=== PATIENT | female | born 1980 | race Caucasian/White ===

== ENCOUNTER 2024-05-26 12:07 | Emergency (ER) | payer MEDICAID, SELFPAY ==
--- NOTE | ~2024-05-26 | CT_ITS ---
CLINICAL HISTORY: rt facial swelling CT soft tissue neck with IV contrast. COMPARISON: None FINDINGS: Normal thyroid gland. Normal submandibular gland. Normal parotid glands. Orbital soft tissues are unremarkable. Parapharyngeal fat pads are preserved. No palatine tonsillar hypertrophy. Normal epiglottis. Visualized portions of the trachea and esophagus are unremarkable. Soft tissue edema overlying the right lower face. Thin fluid collection present along the lateral aspect of the mandible measuring 1.6 x 3.3 x 0.3 cm (series 3, image 174). This likely originates from the 2nd mandibular molar on the right where there is a large periapical radicular cyst. Multiple dental caries present. No supraclavicular lymphadenopathy. Multiple prominent submandibular and jugular chain lymph nodes on the right, likely reactive. Major vascular structures enhance normally. Visualized intracranial structures are unremarkable. Visualized portions of the lung apices are clear. IMPRESSION: 1. Thin organizing fluid collection along the right aspect of the mandible suspicious for developing abscess. There is overlying soft tissue swelling. Suspect odontoid origin from the 2nd right mandibular molar. 2. Multiple normal-sized and prominent jugular chain and submandibular lymph nodes on the right, likely reactive. This document has been electronically signed by: Asa Toledo MD on 05/26/2024 15:39:24
--- NOTE | 2024-05-26 12:37 | ED.GENADULT ---
HPI - General Adult General Chief complaint: Dental/Oral Stated complaint: Dental Pain Time Seen by Provider: 05/26/24 13:44 Related Data Previous Rx's ?Medication ?Instructions ?Recorded clindamycin HCl 300 mg capsule 300 mg PO Q6H 7 days #28 caps 05/26/24 (Cleocin HCl) oxycodone 5 mg tablet 5 mg PO Q6H PRN pain #15 tabs 05/26/24 doxycycline hyclate 100 mg tablet 100 mg PO BID 7 days #14 tabs 05/28/24 Allergies Allergy/AdvReac Type Severity Reaction Status Date / Time cephalexin [From Keflex] Allergy Unknown Verified 05/28/24 11:38 levofloxacin [From Levaquin] Allergy Joint Pain Verified 05/28/24 11:38 lorazepam [From Ativan] Allergy Hallucinati Verified 05/28/24 11:38 ons Penicillins [PCN] Allergy Anaphylaxis Verified 05/28/24 11:38 PENDING SALE TO [facility] Social History Social History Unable to assess alcohol history related to: Unknown Advance Directives: No Advance Directives Information Provided: Yes Physical Exam ED Vital Signs: BMI result Body Mass Index 32.8 Course Course Course Narrative: This is a rapid medical exam performed by Essence Iniguez NP: Additional HPI, ROS, PE not included below will be deferred to primary provider. Patient is a 44-year-old female presenting with complaint of right lower jaw pain and swelling. States has been back and forth to [facility] for the past several days for same complaint, has had CT there. Have chills, cold sweats. Vomiting last night, unable to tolerate PO abx. Plan: labs, will obtain records from [facility] Medications Administered Discontinued Medications Generic Name Dose Route Start Last Admin Trade Name Freq PRN Reason Stop Dose Admin Dexamethasone Sodium Phosphate 10 mg 05/26/24 13:59 05/26/24 14:08 Dexamethasone Sod Phosphate 10 Mg/Ml Vial IVPUSH 05/26/24 14:00 10 mg ONCE ONE Administration Diazepam 2.5 mg 05/26/24 14:00 05/26/24 14:08 Diazepam 10 Mg/2 Ml Cartridge IVPUSH 05/26/24 14:01 2.5 mg STAT STA Administration Diazepam 2.5 mg 05/26/24 14:47 05/26/24 15:01 Diazepam 10 Mg/2 Ml Cartridge IVPUSH 05/26/24 14:48 2.5 mg STAT STA Administration Sodium Chloride 1,000 mls @ 999 mls/hr 05/26/24 14:30 05/26/24 16:09 Ns IVCONT 05/26/24 15:30 Infused .Q1H1M NIMISHA Infusion Clindamycin Phosphate 900 mg in 50 mls @ 50 mls/hr 05/26/24 14:29 05/26/24 16:09 Cleocin IV 05/26/24 15:28 Infused ONCE ONE Infusion Iohexol 100 ml 05/26/24 15:06 05/26/24 15:06 Iohexol 350 Mg/Ml 100 Ml Infus..Btl IV 05/26/24 15:07 60 ml ONCE ONE Administration Morphine Sulfate 4 mg 05/26/24 13:59 05/26/24 14:08 Morphine Sulfate 4 Mg/Ml Cartridge IVPUSH 05/26/24 14:00 4 mg ONCE ONE Administration Protocol Morphine Sulfate 4 mg 05/26/24 14:48 05/26/24 15:00 Morphine Sulfate 4 Mg/Ml Cartridge IVPUSH 05/26/24 14:49 4 mg ONCE ONE Administration Protocol Ondansetron HCl 4 mg 05/26/24 13:59 05/26/24 14:08 Ondansetron Hcl 4 Mg/2 Ml Vial IVPUSH 05/26/24 14:00 4 mg ONCE ONE Administration Medical Decision Making Lab Data 05/26/24 13:06 05/26/24 13:06 Labs: Lab Results 05/26/24 Range/Units 13:06 WBC 9.2 (4.8-10.8) X10*3/uL RBC 4.98 (4.20-5.50) X10*6/uL Hgb 15.0 (12.0-16.0) g/dl Hct 45.0 (37.0-47.0) % MCV 90.4 (80.0-98.0) fL MCH 30.1 (27.0-33.0) pg MCHC 33.3 (31.0-35.0) g/dl RDW 12.9 (11.0-16.0) % Plt Count 558 H (160-400) X10*3/uL MPV 9.8 (9.4-12.3) fL Immature Gran % (Auto) 0.4 (0.0-0.4) % Neut % (Auto) 64.0 (45-73) % Lymph % (Auto) 29.0 (20-40) % Lamb % (Auto) 5.3 (2-11) % Eos % (Auto) 1.0 (0-4) % Baso % (Auto) 0.3 (0-2) % Lymph # (Auto) 2.7 (1.2-4.9) X10*3/uL Lamb # (Auto) 0.5 (0.1-1.2) X10*3/uL Eos # (Auto) 0.1 (0.0-0.4) X10*3/uL Baso # (Auto) 0.0 (0.0-0.2) X10*3/uL Abs Immat Gran (auto) 0.04 H (0.00-0.03) X10*3/uL Absolute Neuts (auto) 5.9 (2.0-8.3) x10*3/uL Absolute Nucleated RBC 0.000 (0.0-0.012) X10*3/uL Nucleated RBC % (auto) 0.0 (0.0-0.2) /100WBC ESR 14 (0-20) MM/HR Sodium 138 (135-145) mmol/L Potassium 4.0 (3.3-5.1) mmol/L Chloride 110 H (96-108) mmol/L Carbon Dioxide 19 L (22-29) mmol/L Anion Gap 13 (12-20) BUN 11 (9-16) mg/dL Creatinine 0.57 (0.5-1.4) mg/dL Estim Creat Clear Calc 131.9 Estimated GFR > 60 Random Glucose 100 (60-115) mg/dL Calcium 9.2 (8.4-10.2) mg/dL Total Bilirubin 0.2 (0.0-1.0) mg/dL AST 11 (5-31) U/L ALT 10 (0-31) U/L Alkaline Phosphatase 66 (39-117) U/L C-Reactive Protein 0.59 H (< or = 0.50) mg/dL Total Protein 7.3 (6.5-8.0) g/dL Albumin 3.9 (3.5-5.0) g/dL Beta HCG, Quant < 2 mIU/mL Discharge Plan Discharge Clinical Impression: Dental abscess Patient Disposition: Home, Self-Care Instructions: Dental Abscess (ED) Additional Instructions: Follow-up with a dentist tomorrow, we sent a prescription for clindamycin to your pharmacy (clindamycin is an appropriate antibiotic for the dental infection) also we sent pain medicine for you and anti-inflammatory medication. Return to emergency room if you have a fever, if you unable to tolerate fluids down any concern. Prescriptions: New oxycodone 5 mg tablet 5 mg PO Q6H PRN (Reason: pain) Qty: 15 0RF Rx Instructions: partial filing upon pt request; Partial Fill upon patient request. clindamycin HCl [Cleocin HCl] 300 mg capsule 300 mg PO Q6H 7 Days Qty: 28 0RF No Action doxycycline hyclate 100 mg tablet 100 mg PO BID 7 Days Qty: 14 0RF Interventions: ED Discharge Assessment Last Done: 05/26/24 16:36 Discharge Date/Time: 05/26/24 16:37 Print Language: Sami
[2024-05-26 12:40] VITALS: BP 125/68; PULSE 90; RESP 18; TEMP 36.8; O2SAT 98; BMI 32.8
[2024-05-26 13:26] LABS: MANUAL DIFF FLAG NO
[2024-05-26 13:29] LABS: Basophils Percent Auto 0.3 % (0-2); Eosinophils Absolute Auto 0.1 X10*3/uL (0.0-0.4); Imm Gran Abs Auto 0.04 X10*3/uL (0.00-0.03); Imm Gran Pct Auto 0.4 % (0.0-0.4); Lymphocytes Absolute Auto 2.7 X10*3/uL (1.2-4.9); Mean Corpuscular HGB Conc 33.3 g/dl (31.0-35.0); Mean Corpuscular Hemoglobin 30.1 pg (27.0-33.0); Mean Corpuscular Volume 90.4 fL (80.0-98.0); Mean Platelet Volume 9.8 fL (9.4-12.3); Monocytes Absolute Auto 0.5 X10*3/uL (0.1-1.2); Monocytes Percent Auto 5.3 % (2-11); Neutrophils Absolute Auto 5.9 x10*3/uL (2.0-8.3); Platelet Count 558 X10*3/uL (160-400); Red Blood Count 4.98 X10*6/uL (4.20-5.50); Red Cell Distribution Width 12.9 % (11.0-16.0); White Blood Count 9.2 X10*3/uL (4.8-10.8)
[2024-05-26 13:45] LABS: Alanine Aminotransferase 10 U/L (0-31); Albumin Level 3.9 g/dL (3.5-5.0); Anion Gap 13 (12-20); Aspartate Amino Transferase 11 U/L (5-31); Bilirubin Total 0.2 mg/dL (0.0-1.0); Blood Urea Nitrogen 11 mg/dL (9-16); C Reactive Protein 0.59 mg/dL (< or = 0.50); Calcium 9.2 mg/dL (8.4-10.2); Carbon Dioxide 19 mmol/L (22-29); Chloride 110 mmol/L (96-108); Creatinine Clr Calc Pharmacy 131.9; Estimated Glomerular Filt Rate > 60; Glucose Random 100 mg/dL (60-115); Sodium 138 mmol/L (135-145); Total Protein 7.3 g/dL (6.5-8.0)
[2024-05-26 13:53] LABS: Alkaline Phosphatase 66 U/L (39-117); HCG Quantitative < 2 mIU/mL
[2024-05-26] MEDS: diazePAM 10 MG/2 ML CARTRIDGE 2.5 MG IVPUSH ×2 (14:08→15:01)
[2024-05-26] MEDS: Morphine Sulfate 4 MG/ML CARTRIDGE IVPUSH ×2 (14:08→15:00)
[2024-05-26] MEDS: dexAMETHasone sod phosphate 10 MG/ML VIAL IVPUSH (14:08)
[2024-05-26] MEDS: ondansetron HCL 4 MG/2 ML VIAL IVPUSH (14:08)
[2024-05-26 14:14] LABS: Erythrocyte Sedimentation Rate 14 MM/HR (0-20)
--- NOTE | 2024-05-26 14:24 | ED.DENTAL ---
HPI - Dental/Oral General Chief complaint: Dental/Oral Stated complaint: Dental Pain Time Seen by Provider: 05/26/24 13:44 Source: patient Mode of arrival: ambulatory Limitations: no limitations History of Present Illness HPI Narrative: This is a 44 years old presented to emergency department complaining of swelling in the right lower jaw to take. She was seen in another hospital May 20 [place] she was discharged home on Levaquin and Flagyl in but she is not feeling any better. No pain medicine were given to her. MD Complaint: tooth pain Onset (ago): week(s) (1) Duration: constant Severity: moderate Relieving factors: nothing Exacerbating factors: nothing Context: history of dental caries Related Data Previous Rx's ?Medication ?Instructions ?Recorded clindamycin HCl 300 mg capsule 300 mg PO Q6H 7 days #28 caps 05/26/24 (Cleocin HCl) oxycodone 5 mg tablet 5 mg PO Q6H PRN pain #15 tabs 05/26/24 Allergies Allergy/AdvReac Type Severity Reaction Status Date / Time cephalexin [From Keflex] Allergy Unknown Verified 05/26/24 12:42 levofloxacin [From Levaquin] Allergy Joint Pain Verified 05/26/24 12:42 lorazepam [From Ativan] Allergy Hallucinati Verified 05/26/24 12:42 ons Penicillins [PCN] Allergy Anaphylaxis Verified 05/26/24 12:42 PMFSH Past Medical History [facility] Narrative: Anxiety, asthma, smoker Social History Social History Unable to assess alcohol history related to: Unknown Smoked in Last 30 Days: Yes Use of substances other than those prescribed or required for medical reasons: No Advance Directives: No Advance Directives Information Provided: Yes Patient : No Physical Exam Vital Signs: Vital Signs: Last Vital Signs Temp 97.3 F 05/26/24 16:06 Pulse 88 05/26/24 16:06 Resp 16 05/26/24 16:06 BP 135/76 05/26/24 16:06 Pulse Ox 100 05/26/24 16:06 O2 Del Method Room Air 05/26/24 16:06 BMI result Body Mass Index 32.8 No acute distress swelling in the right side of the face Const: General: cooperative Nutritional Appearance: average body habitus Orientation/consciousness: patient oriented x3 Limitations: no limitations HEENT: Other: Swelling right side of the face right mandible Head: Yes normal to inspection Ears: hearing grossly normal bilaterally Teeth and gingiva: other (Cavity present to 30 and 31) Neck: Neck: Yes normal visual inspection Chest: Chest palpation & inspection: normal inspection of the chest Resp: Effort & Inspection: normal respiratory effort Auscultation: clear to auscultation bilaterally Cardio: Jugular venous distension: no JVD Rate: regular rate Rhythm: regular rhythm GI: Inspection: Yes normal to inspection Palpation (GI): Soft to palpation, not firm and nontender Auscultation: normal bowel sounds Skin: General skin exam: no rashes or lesions noted Lesions: no lesions Rashes: no rashes Neuro: General: patient oriented x3 Cranial nerves: Yes CN's II-XII intact bilaterally Course Reevaluation(s) Reevaluation #1: Patient is feeling better, she remain afebrile and not toxic, she has a normal white count,ESR 14 She has small mandibular abscess. She is on Levaquin and Flagyl which I do not think is appropriate for tooth abscess. I will discharge home on clindamycin and pain medicine she tells me that she will see the dentist tomorrow I think is very reasonable plan she is very comfortable with this Time: 16:13 Medications Administered Discontinued Medications Generic Name Dose Route Start Last Admin Trade Name Deanq PRN Reason Stop Dose Admin Dexamethasone Sodium Phosphate 10 mg 05/26/24 13:59 05/26/24 14:08 Dexamethasone Sod Phosphate 10 Mg/Ml Vial IVPUSH 05/26/24 14:00 10 mg ONCE ONE Administration Diazepam 2.5 mg 05/26/24 14:00 05/26/24 14:08 Diazepam 10 Mg/2 Ml Cartridge IVPUSH 05/26/24 14:01 2.5 mg STAT STA Administration Diazepam 2.5 mg 05/26/24 14:47 05/26/24 15:01 Diazepam 10 Mg/2 Ml Cartridge IVPUSH 05/26/24 14:48 2.5 mg STAT STA Administration Sodium Chloride 1,000 mls @ 999 mls/hr 05/26/24 14:30 05/26/24 16:09 Ns IVCONT 05/26/24 15:30 Infused .Q1H1M NIMISHA Infusion Clindamycin Phosphate 900 mg in 50 mls @ 50 mls/hr 05/26/24 14:29 05/26/24 16:09 Cleocin IV 05/26/24 15:28 Infused ONCE ONE Infusion Iohexol 100 ml 05/26/24 15:06 05/26/24 15:06 Iohexol 350 Mg/Ml 100 Ml Infus..Btl IV 05/26/24 15:07 60 ml ONCE ONE Administration Morphine Sulfate 4 mg 05/26/24 13:59 05/26/24 14:08 Morphine Sulfate 4 Mg/Ml Cartridge IVPUSH 05/26/24 14:00 4 mg ONCE ONE Administration Protocol Morphine Sulfate 4 mg 05/26/24 14:48 05/26/24 15:00 Morphine Sulfate 4 Mg/Ml Cartridge IVPUSH 05/26/24 14:49 4 mg ONCE ONE Administration Protocol Ondansetron HCl 4 mg 05/26/24 13:59 05/26/24 14:08 Ondansetron Hcl 4 Mg/2 Ml Vial IVPUSH 05/26/24 14:00 4 mg ONCE ONE Administration Medical Decision Making Medical Decision Making [facility] Narrative: Patient is here with a facial abscess we will obtain labs CT and reassess 16:18 I re-examined the patient she is in feels much better she is tolerating p.o. well labs completely normal including white count and sed rate, she has no fever she is not tachycardic by CT she has a small dental abscess. I think she can be discharged home she is very comfortable with this currently she was on Levaquin and Flagyl a we will discharge on clindamycin. She has been she will see how that is tomorrow Differential Diagnosis Differential Diagnoses: The differential diagnosis associated with the presentation includes Cavity/tooth abscess Admission/Observation Consideration of admission/observation: Escalation of care including admission/observation considered Lab Data [facility] Lab Attestation statement: I reviewed the patient's lab results. 05/26/24 13:06 05/26/24 13:06 Labs: Lab Results 05/26/24 Range/Units 13:06 WBC 9.2 (4.8-10.8) X10*3/uL RBC 4.98 (4.20-5.50) X10*6/uL Hgb 15.0 (12.0-16.0) g/dl Hct 45.0 (37.0-47.0) % MCV 90.4 (80.0-98.0) fL MCH 30.1 (27.0-33.0) pg MCHC 33.3 (31.0-35.0) g/dl RDW 12.9 (11.0-16.0) % Plt Count 558 H (160-400) X10*3/uL MPV 9.8 (9.4-12.3) fL Immature Gran % (Auto) 0.4 (0.0-0.4) % Neut % (Auto) 64.0 (45-73) % Lymph % (Auto) 29.0 (20-40) % [place] % (Auto) 5.3 (2-11) % Eos % (Auto) 1.0 (0-4) % Baso % (Auto) 0.3 (0-2) % Lymph # (Auto) 2.7 (1.2-4.9) X10*3/uL [place] # (Auto) 0.5 (0.1-1.2) X10*3/uL Eos # (Auto) 0.1 (0.0-0.4) X10*3/uL Baso # (Auto) 0.0 (0.0-0.2) X10*3/uL Abs Immat Gran (auto) 0.04 H (0.00-0.03) X10*3/uL Absolute Neuts (auto) 5.9 (2.0-8.3) x10*3/uL Absolute Nucleated RBC 0.000 (0.0-0.012) X10*3/uL Nucleated RBC % (auto) 0.0 (0.0-0.2) /100WBC ESR 14 (0-20) MM/HR Sodium 138 (135-145) mmol/L Potassium 4.0 (3.3-5.1) mmol/L Chloride 110 H (96-108) mmol/L Carbon Dioxide 19 L (22-29) mmol/L Anion Gap 13 (12-20) BUN 11 (9-16) mg/dL Creatinine 0.57 (0.5-1.4) mg/dL Estim Creat Clear Calc 131.9 Estimated GFR > 60 Random Glucose 100 (60-115) mg/dL Calcium 9.2 (8.4-10.2) mg/dL Total Bilirubin 0.2 (0.0-1.0) mg/dL AST 11 (5-31) U/L ALT 10 (0-31) U/L Alkaline Phosphatase 66 (39-117) U/L C-Reactive Protein 0.59 H (< or = 0.50) mg/dL Total Protein 7.3 (6.5-8.0) g/dL Albumin 3.9 (3.5-5.0) g/dL Beta HCG, Quant < 2 mIU/mL Radiology Impression Discussion of test interpretation with radiology: I have reviewed the radiologist's reading. Radiologist Impression: 1. Thin organizing fluid collection along the right aspect of the mandible suspicious for developing abscess. There is overlying soft tissue swelling. Suspect odontoid origin from the 2nd right mandibular molar. 2. Multiple normal-sized and prominent jugular chain and submandibular lymph nodes on the right, likely reactive. This document has been electronically signed by: Asa Toledo MD on 05/26/2024 15:39:24 Independent Historian Clinical information obtained from an independent historian. History obtained from or confirmed by: Spouse External Record Review record of [facility] 05/20 Discharge Plan Discharge Clinical Impression: Dental abscess Patient Disposition: Home, Self-Care Instructions: Dental Abscess (ED) Additional Instructions: Follow-up with a dentist tomorrow, we sent a prescription for clindamycin to your pharmacy (clindamycin is an appropriate antibiotic for the dental infection) also we sent pain medicine for you and anti-inflammatory medication. Return to emergency room if you have a fever, if you unable to tolerate fluids down any concern. Prescriptions: New oxycodone 5 mg tablet 5 mg PO Q6H PRN (Reason: pain) Qty: 15 0RF Rx Instructions: partial filing upon pt request; Partial Fill upon patient request. clindamycin HCl [Cleocin HCl] 300 mg capsule 300 mg PO Q6H 7 Days Qty: 28 0RF Print Language: Montserratian
[2024-05-26] MEDS: Clindamycin Phosphate/D5W 900 MG/50 ML PIGGYBACK 50 MG IV (15:00)
[2024-05-26] MEDS: 0.9 % Sodium Chloride 1,000 ML 999 ML IVCONT (15:00)
[2024-05-26] MEDS: iohexoL 350 MG/ML 100 ML INFUS..BTL IV (15:06)
[2024-05-26 16:06] VITALS: BP 135/76; PULSE 88; RESP 16; TEMP 36.3; O2SAT 100
--- NOTE | 2024-05-26 16:07 | PC.NURSE ---
Pt's pallor improved; pt reports + relief of pain after treatment per orders (3/10); pt currently taking PO fluids without issue; vss
[2024-05-26 16:36] VITALS: BP 135/76; PULSE 88; RESP 16; TEMP 36.3; O2SAT 100
== END 2024-05-26 16:37 | disposition home or self-care (01) ==
PROVIDERS: Registered Nurse Emergency; Emergency Provider Emergency Medicine
DX: K04.7 Periapical abscess without sinus (principal); R22.0 Localized swelling, mass and lump, head; M54.2 Cervicalgia; Z79.899 Other long term (current) drug therapy
CPT/HCPCS: 36415; 70491; 80053; 84702; 85025; 85652; 86140; 96361; 96374; 96375; 96376; 99284; J0736; J1100; J2270; J2405; J3360; Q9967

== ENCOUNTER → 2024-05-26 14:00 | Outpatient (BNV) | payer MEDICAID, SELFPAY | PROVIDERS: Emergency Provider Emergency Medicine; Visit Provider Radiology Diagnostic Radiology | DX: M79.89 Other specified soft tissue disorders (principal); R59.0 Localized enlarged lymph nodes | CPT/HCPCS: 70491 ==

== ENCOUNTER 2024-05-28 11:20 | Emergency (ER) | payer MEDICAID, SELFPAY ==
[2024-05-28 11:29] VITALS: BP 119/74; PULSE 104; RESP 16; TEMP 37.1; O2SAT 97; BMI 31.9
--- NOTE | 2024-05-28 11:29 | ED_ITS ---
HPI - Dental/Oral General Chief complaint: Dental/Oral Stated complaint: R Side of Mouth Swelling- Cyst Burst in Mouth Time Seen by Provider: 05/28/24 11:38 Source: patient, family, RN notes reviewed and old records reviewed Mode of arrival: ambulatory History of Present Illness ED Provider: Mamta Wan PA-C HPI Narrative: 44-year-old female with a past medical history dental abscess evaluated in our ED on 05/26/2024 presenting to the ED complaining of persistent right-sided facial/oral swelling and pain x few days. Admits abscess popped on way to the ED. patient was previously prescribed Levaquin and Flagyl however states she was noncompliant with Levaquin, then was prescribed clindamycin on 05/26, admits to taking yesterday however was unable to tolerate due to abdominal pain, nausea and vomiting. Admits symptoms have improved since popped on the way to the ED. reports mild swelling reduction. Denies fever, difficulty or inability to swallow. Admits she has a Dental appy in July Related Data Previous Rx's ?Medication ?Instructions ?Recorded clindamycin HCl 300 mg capsule 300 mg PO Q6H 7 days #28 caps 05/26/24 (Cleocin HCl) oxycodone 5 mg tablet 5 mg PO Q6H PRN pain #15 tabs 05/26/24 doxycycline hyclate 100 mg tablet 100 mg PO BID 7 days #14 tabs 05/28/24 Allergies Allergy/AdvReac Type Severity Reaction Status Date / Time cephalexin [From Keflex] Allergy Unknown Verified 05/28/24 11:38 levofloxacin [From Levaquin] Allergy Joint Pain Verified 05/28/24 11:38 lorazepam [From Ativan] Allergy Hallucinati Verified 05/28/24 11:38 ons Penicillins [PCN] Allergy Anaphylaxis Verified 05/28/24 11:38 Review of Systems Review of Systems: Yes all other systems are reviewed and are negative Constitutional: Constitutional: Reports as per [facility] Past Medical History Attestation statement: The following information was validated with the patient. Source: old records reviewed Social History Social History Unable to assess alcohol history related to: Unknown Physical Exam Vital Signs: Vital Signs: Last Vital Signs Temp 98.8 F 05/28/24 11:46 Pulse 104 H 05/28/24 11:46 Resp 16 05/28/24 11:46 BP 119/74 05/28/24 11:46 Pulse Ox 97 05/28/24 11:46 O2 Del Method Room Air 05/28/24 11:46 BMI result Body Mass Index 31.9 Const: General: cooperative, healthy appearing and no acute distress Orientation/consciousness: patient oriented x3 Limitations: no limitations HEENT: Other: +right sided lower facial swelling w/ttp . +open draining abscess to R lower molar. +ttp. No induration Head: Yes normal to inspection and Yes atraumatic Ears: hearing grossly normal bilaterally General nose exam: Normal external nose present Teeth and gingiva: caries and poor dentition Throat: Yes tonsils normal, Yes uvula midline, No peritonsillar mass, No uvula laterally displaced and No uvular edema Eyes: General: appearance normal, both eyes and all related structures EOM: EOMs intact bilaterally Neck: Neck: Yes normal visual inspection and Yes no meningeal signs Resp: Effort & Inspection: normal respiratory effort, no respiratory distress and no stridor Cardio: Rate: regular rate Skin: Rashes: no rashes Wounds: no wounds Neuro: General: patient oriented x3, tone normal and no meningeal signs Cranial nerves: Yes CN's II-XII intact bilaterally Gait exam (Neuro): Normal gait present Extrem: General: Yes normal to inspection Medical Decision Making Medical Decision Making MDM Narrative: 44-year-old female with a past medical history dental abscess evaluated in our ED on 05/26/2024 presenting to the ED complaining of persistent right-sided facial/oral swelling and pain x few days. On exam mildly tachycardic, NAD, nontoxic appearing, physical exam as noted above. Open/draining abscess noted to right lower molar. Large amount of pus expressed from area. No evidence of [employer]/retropharyngeal abscess. Uvula midline. Plan: Change antibiotics to doxycycline as patient is not tolerating clindamycin. Multiple allergies. States she has dentistry follow-up Please refer to course for remaining clinical decision making, interpretation of labs/imaging results, and discussions with consultants and/or family members. Results discussed with patient including worrisome signs and symptoms and strict return precautions, and when to return to the emergency department. They verbalized understanding and feel safe for discharge at this time. Differential Diagnosis Differential Diagnoses: The differential diagnosis associated with the presentation includes As above External Record Review External record reviewed: Inpatient record, Office record, Outpatient record, Prior outpatient labs, Prior outpatient radiology, Primary care record and Outside ED record Tests considered The following testing was considered but not selected: As above Prescription Management I considered prescription management with: Pain Medication and Antibiotic Social Determinants Patient?s care significantly limited by Social Determinants of Health including: Inadequate housing, Low income, Alcoholism and drug addiction in family, Problems related to primary support group and Other Social Determinant of Health Discharge Plan Discharge Clinical Impression: Dental abscess Patient Disposition: Home, Self-Care Instructions: Dental Abscess (ED) Additional Instructions: Doxycycline as an antibiotic please take as prescribed until completion It was very importantly follow-up with the dentist to you are scheduled with If swelling persists or worsens, you have fever, difficulty or inability to swallow return to the ED Prescriptions: New doxycycline hyclate 100 mg tablet 100 mg PO BID 7 Days Qty: 14 0RF No Action oxycodone 5 mg tablet 5 mg PO Q6H PRN (Reason: pain) Qty: 15 0RF Rx Instructions: partial filing upon pt request; Partial Fill upon patient request. clindamycin HCl [Cleocin HCl] 300 mg capsule 300 mg PO Q6H 7 Days Qty: 28 0RF Referrals: Álvaro Rosenbaum [Dentist] - Ej Yanes DMD [Dentist] - Onur Pritchett DMD [Dentist] - Discharge Date/Time: 05/28/24 11:46 Print Language: Congolese
[2024-05-28 11:46] VITALS: BP 119/74; PULSE 104; RESP 16; TEMP 37.1; O2SAT 97
--- OUTSIDE RECORDS SUMMARY | 2024-05-28 14:09 | XMS_ITS | Clinical Summary ---
Author Organization [facility] Address [address] [place] [address] Care Team Providers Care [employer]worker [employer] Name Role Phone Unavailable Primary Care Provider Unavailabl e Source Comments PLEASE NOTE, if this patient is a minor, it may be UNLAWFUL to discuss sensitive information that is contained in these records (such as FAMILY PLANNING, MENTAL HEALTH or SUBSTANCE ABUSE) with the minor patient's parent or other person without the patient's specific authorization.[facility] Immunizations Immunization Administration Dates Next Due Moderna COVID-19 Vaccine, re d cap blue label, 12+ Primary Series 06/14/2020,05/17/2020 Social History Tobacco Use Types Packs/Day Years Used Date Smoking Tobacco: Never Assessed Social Connections Answer Date Recorded Social Connections and Isolation 0 07/06/2023 Financial Resource Strain Answer Date R ecorded Financial Resource Strain 0 2023 Stress Answer Date Recorded Stress 0 07/06/2023 Physical Activity Answer Date Recorded Physical Activity 0 07/06/2023 Food Insecurity Answer Date Recorded Food 0 07/06/2023 Transportation Needs Answer Date Record ed Transportation 0 07/06/2023 Housing Stability Answer Date Recorded Housing 0 07/06/2023 Safety and Environment Answer Date Jonel rded Safety 0 07/06/2023 Utilities Answer Date Recorded Utilities 0 07/06/2023 Employment Answer Date Recorded Employment 0 07/06/2023 Comments Unknown Sex and Gender Information Value Date Recorded Sex Assigned at Not on file Legal Sex Female 6:21 AM PDT Gender Identity Not on file Sexual Orientation Not on file Plan of Treatment Health Maintenance Due Date Last Done Comments Anxiety Screening 1982 Diabetes Screening 1982 HPV Screening 1982 Hepatitis C Screening 1982 Lipid Screening 1982 Pap + HPV 1982 Tobacco Screening 1982 HIV Screening 1997 Relationship Safety Screening/Counseling 1997 Hypertension Screening (#1) 2000 Imm-Hepatitis B (1 of 3 - 19 + 3-dose series) 2001 Cervical Cancer Screening 04/10/2003 Pap Smear 04/10/2003 Breast Cancer Screening (Mammogram) 2022 [id number] (2023- season) 2023 021, 05/17/2020 Imm-Influenza (#1) 2023 11/19/2018 Alcohol and Drug Screen 02/06/2024 Depression Annual Screen 02/06/2024 Imm-DTaP/Tdap/Td (2 - Td or Tdap) 11/19/2028 019 Cervical Ablation/Cold-Knife Conization Discontinued Cervical Cryotherapy Discontinued Colposcopy Discontinued Endometrial Biopsy Discontinued Excision/Leep Discontinued HPV Genotyping Discontinued Vaginal Pap Discontinued Vulvoscopy Discontinued Insurance [place] MEDICAID
--- OUTSIDE RECORDS SUMMARY | 2024-05-28 14:09 | XMS_ITS | Data Portability ---
Author Organization [place] - [facility], [facility] Address [address] [place] [id number] Care Team Providers Care Facility Worker Name Role Phone BONNIE FENTON Primary Care Provider [phone] Assessment Encounter Date Assessment Date Assessment LastModified by Organization Details LastModified Time 11/22/2023 11/22/2023 A small amount of purulent debris was noted in the right mastoid cavity. The mastoid cavity was debrided today. Recommend a course of Tobradex drops to the right ear with dry ear precautions. She will follow up in 2-3 weeks. [email or web address] Not available 11/22/2023 16:27:40 03/03/2024 03/03/2024 Patient has a right sided canal wall down mastoidectomy cavity on the right. She has not had prior meatoplasty, making it somewhat difficult to debride the cavity. She has a relatively shallow cavity. Along the inferior margin of the cavity there is a granulation polyp which was debrided today using cup forceps and the base cauterized with silver nitrate. Bacitracin applied over top. No other significant otorrhea noted within the mastoid cavity. Patient will maintain dry ear precautions. No need for oral or topical antibiotics. Follow-up in 3 weeks for reevaluation and possible further debridement. We did briefly discuss her previous audiogram showing significant conductive hearing loss in the right ear but she already said that she does not have much interest in pursuing any amplification technology. [email or web address] Not available 03/03/2024 13:30:17 03/25/2024 03/25/2024 The right mastoid is looking much better today. No signs of residual granulation or infection. Today we discussed the importance of preventative cleaning going forward to reduce the risk of recurrent infection. Follow-up with PA in the [place] office in 6 months for next debridement. [email or web address] Not available 03/25/2024 16:09:52 Plan of Treatment Reminders Order Date Submit Date Provider Last Modified By Organization Details Last Modified Time Details Appointments Establish ed 15 2024 02:45P M DOUG BAR PA-C Not available Not available Not available Lab None recorded. Referral None recorded. Procedures None recorded. Surgeries None recorded. Imaging None recorded. Medication Orders tobramyci n 0.3 %-dexamet hasone 0.1 % eye drops,harry pension 2023 025 [id number], [address] [place] [address], [id number], 03/03/2024 13:06:05 Patient TargetsNo targets recorded. Patient InstructionsNo instructions recorded. Reason for Referral None Reported. Problems Name Problem SNOMED Code Status Onset Date Resolution Date Notes Provider Name and Address Organization Details Recorded Time Postmasto idectomy complicat ion 02867776 Active 2021 Other disorders following mastoidec leroy, right ear; Note: Date Diagnosed : 07/08/2021 9:54 AM (H95.191) Not Available [facility] 4 03:19:34 Conductiv e hearing loss 57522087 Active 2018 Conductiv e hearing loss, unilatera l, right ear, with unrestric erwin hearing on the contralat eral side; Note: Date Diagnosed : 06/04/2018 2:48 PM (H90.11) Not Available [facility] 4 03:19:34 Otorrhea of right ear 51014556306 17631 Active 2018 Otorrhea, right ear; Note: Date Diagnosed : 10/25/2018 12:02 PM (H92.11) Not Available [facility] 4 03:19:34 Disorder of left Eustachia n tube 51329577374 60628 Active 2021 Other specified disorders of Eustachia n tube, left ear; Note: Date Diagnosed : 08/11/2021 4:25 PM (H69.82) Not Available [facility] 4 03:19:34 Chronic mucoid otitis media of right middle ear 78453545027 58517 Active 2017 Chronic mucoid otitis media, right ear; Note: Date Diagnosed : 03/15/2017 11:52 AM (H65.31) Not Available [facility] 4 03:19:34 Cigarette smoker 98444124 Active 2024 DAVID LEON MD [address], [place], [address] , [place] - [facility] 5 13:11:14 Granulati on of right mastoid cavity Active 2024 DAVID LEON MD [address] [facility], [place], [address] , [place] - [facility] 5 13:29:51 Referred otalgia of right ear 82314430194 42336 Active 2024 DAVID LEON MD [address] [facility], [place], [address] , [place] - [facility] 5 13:30:24 Perforati on of nasal septum 38204282 Active 2024 DAVID LEON MD [address] [facility], [place], [place], [address] , [place] - [facility] 5 13:30:55 Problem Notes None recorded. Procedures Surgical History Date Name Laterality Status Provider Name and Address Organization Details Recorded Time 5 Debridement of Mastoid Cavity right completed DAVID LEON MD [address] [facility], [place], [address], [facility] - [facility] 03/25/2024 16:06:40 5 Debridement of Mastoid Cavity complex right completed DAVID LEON MD [address],[place] [facility], [place], [address], [place] - [facility] 03/03/2024 13:22:23 4 Debridement of Mastoid Cavity right completed Shanna Acosta [place] - [facility] 11/22/2023 16:26:44 Imaging Results None recorded. Procedure Notes None recorded. Medical Equipment None Reported. Allergies Allergen ID Allergen Name Allergen Category Reaction Reaction Severity Criticality Documentation Date Start Date Code Code System Note Provider Name and Address Organization Details Recorded Time 13283 lorazepam medicatio n other Not available Not available 06/19/2023 6470 RxNorm React ion: unkno wn, unspe cifie d;; Not Available [facility] 4 00:48:22 47375 penicilli n V potassium medicatio n other Not available Not available 06/19/2023 38938 5 RxNorm React ion: unkno wn, unspe cifie d;; Not Available [facility] 4 00:49:06 18894 erythromy pavel ethylsucc inate medicatio n other Not available Not available 06/19/2023 4056 RxNorm React ion: unkno wn, unspe cifie d;; Not Available [facility] 4 00:49:22 Medications Name Sig Start Date Stop Date Status Note LastModified by Organization Details LastModified Time cyclobenz aprine 10 mg tablet TAKE 1 TABLET BY MOUTH 3 TIMES A DAY NEEDED. 03/03 completed Not Available Not Available Not Available buspirone 5 mg tablet TAKE 1 TABLET BY MOUTH THREE TIMES A DAY active Not Available Not Available No t Available nicotine 14 mg/24 hr daily transderm al patch APPLY 1 PATCH ONTO THE SKIN EVERY DAY 03/03 completed Not Available Not Available Not Available Celexa 10 mg tablet 03/03 completed Medicati on ID: [id number] B rand Name: Celexa S end Method: E-Prescr ibed Sub s Allowed: subs OK Medic ationGen ericName : Celexa Not Available Not Available Not Available trazodone 50 mg tablet TAKE 1 TABLET BY MOUTH NIGHTLY AT BEDTIME active Not Available Not Available No t Available gabapenti n 400 mg capsule TAKE 1 CAPSULE BY MOUTH THREE TIMES A DAY 03/03 completed Not Available Not Available Not Available clonazepa m 1 mg tablet TAKE 1 TABLET BY MOUTH 3 TIMES A DAY NEEDED. 03/03 completed Not Available Not Available Not Available doxepin 10 mg capsule TAKE 1 CAPSULE BY MOUTH NIGHTLY AT BEDTIME. active Not Available Not Available No t Available oxycodone -acetamin ophen 5 mg-325 mg tablet TAKE 1-2 TABLETS BY MOUTH EVERY 6 (SIX) HOURS NEEDED FOR PAIN (SEVERE PAIN IN HIP). 03/25 completed Not Available Not Available Not Available ofloxacin 0.3 % ear drops INSTILL 5 DROPS BY EACH EAR ROUTE 2 TIMES A DAY FOR 7 DAYS. 03/03 completed Not Available Not Available Not Available citalopra m 20 mg tablet TAKE 1 TABLET (20 MG TOTAL) BY MOUTH DAILY. FOR FIRST 1-2 WEEKS START WITH 0.5 MG DAILY. active Not Available Not Available No t Available nicotine (polacril ex) [address] EACH (4 MG TOTAL) INSIDE CHEEK NEEDED FOR SMOKING CESSATIO N. 03/25 completed Not Available Not Available Not Available doxycycli ne monohydra te 100 mg capsule TAKE 1 CAPSULE BY MOUTH TWICE A DAY FOR 10 DAYS 03/03 completed Not Available Not Available Not Available promethaz ine 25 mg tablet TAKE 1 TABLET BY MOUTH EVERY 6 HOURS NEEDED FOR NAUSEA 03/25 completed Not Available Not Available Not Available fluoxetin e 10 mg capsule TAKE 1 CAPSULE BY MOUTH EVERY DAY IN THE MORNING WITH FOOD active Not Available Not Available No t Available etodolac 400 mg tablet TAKE 1 TABLET (400 MG TOTAL) BY MOUTH 2 TIMES A DAY active Not Available Not Available No t Available olanzapin e 15 mg tablet TAKE 1 TABLET BY MOUTH NIGHTLY AT BEDTIME. active Not Available Not Available No t Available levofloxa pavel 750 mg tablet TAKE 1 TABLET BY MOUTH EVERY DAY 03/25 completed Not Available Not Available Not Available zolpidem 10 mg tablet TAKE 1 TABLET BY MOUTH NIGHTLY AT BEDTIME NEEDED. active Not Available Not Available No t Available methylpre dnisolone 4 mg tablets in a dose pack TAKE 6 TABLETS ON DAY 1 DIRECTED ON PACKAGE AND DECREASE BY 1 TAB EACH DAY FOR A TOTAL OF 6 DAYS 03/03 completed Not Available Not Available Not Available fluoxetin e 20 mg capsule TAKE 1 CAPSULE BY MOUTH EVERY DAY IN THE MORNING WITH FOOD 03/03 completed Not Available Not Available Not Available fluticaso ne propionat e 50 mcg/actua tion nasal spray,harry pension 2 puff once a day 2021 active Medicati on ID: [id number] D uration Value: 30 Prescri bed By Name: Aidee madden MD Brand Name: fluticas one propiona te Send Method: E-Prescr ibed Sub s Allowed: subs OK Medic ationGen ericName : fluticas one propiona te Not Available Not Available Not Available Ventolin HFA 90 mcg/actua tion aerosol inhaler INHALE 2 PUFFS INTO THE LUNGS EVERY 6 HOURS NEEDED FOR WHEEZING OR SHORTNES S OF BREATH/D YSPNEA active Not Available Not Available No t Available tobramyci n 0.3 %-dexamet hasone 0.1 % eye drops,harry pension INSTILL 4 DROPS TO RIGHT EAR TWICE DAILY FOR 2 WEEKS 03/03 completed Not Available Not Available Not Available ciproflox acin 0.3 %-dexamet hasone 0.1 % ear drops,harry pension APPLY 4 DROPS TO RIGHT EAR TWICE A DAY FOR 10 DAYS 03/03 completed Not Available Not Available Not Available bupropion HCl XL 150 mg 24 hr tablet, extended release TAKE 1 TABLET BY MOUTH EVERY DAY active Not Available Not Available No t Available Vitals Date Recorded Body height Body mass index (BMI) Body weight Provider Name and Address Organization Details Last Updated DateTime 11/22/2023 160.02 cm 30.3 kg/m2 24310.3 g Gregor Madden [facility] 11/22/2023 16:04:25 Date Recorded Body height Body weight Provider Name and Address Organization Details Last Updated DateTime 03/03/2024 160.02 cm 78750.7 g Maryann Amaral [facility] 03/03/2024 13:04:33 Date Recorded Body height Body weight Provider Name and Address Organization Details Last Updated DateTime 03/25/2024 160.02 cm 54404.7 g Maryann Amaral [facility] 03/25/2024 15:41:44 Social History None recorded. Functional Status None recorded. Mental Status None recorded. Family History Nothing Reported. Medical History Condition Response Depression Y Anxiety Y Gynecological HistoryNo gynecological history recorded. Obstetrics History GPAL:G 0 P 0 0 0 0 Past Encounters Encounter ID Performer Location Encounter Start Date Encounter Closed Date Diagnosis/Indication Diagnosis SNOMED-CT Code Diagnosis ICD10 Code Diagnosis Note [id number] Shanna Acosta [facility] on [address] [place] [phone] 11/22/2023 15:53:44 11/22/2023 16:20:59 Otorrhea of right ear [id number] 128801 H92.11 Postmastoi dectomy complication 09254073 H95.191 [id number] DAVID LEON MD [facility] on [address] [place] [phone] 03/03/2024 12:55:11 03/03/2024 13:26:37 Postmastoidectomy complication 10607777 H95.191 Cigarette smoker 6840261 7 F17.210 Recommende d stopping smoking as this is having negative effect on her immune system and may be perpetuati ng chronic infections on the right. Granulatio n of right mastoid cavity 3271470210 205148 H95.121 Referred o talgia of right ear 7146646406 412215 H92.01 M26.621 M79.11 Patient has significan t right TMJ pain which may be erroneousl y interprete d as ear pain. This is secondary to her significan tly poor dentition. She has a known diagnosis of TMJ. I have urged her to work with her dentist in this regard. Perforatio n of nasal septum 44006224 J34.89 Patient noted to have a nasal septal perforatio n, likely secondary effect of her previous cocaine use. She is not currently using cocaine. No need for specific interventi on in this regard. [id number] DAVID LEON MD [facility] [address] [place] [address] 03/25/2024 15:10:49 03/25/2024 16:09:25 Granulation of right mastoid cavity 1953263331 862311 H95.121 Postmastoi dectomy complication 24192346 H95.191 Cigarette smoker 8296269 7 F17.210 Recommende d stopping smoking as this is having negative effect on her immune system and may be perpetuati ng chronic infections on the right. Health Concerns Section Related Observation LastModified by Organization Detai ls LastModified Time None Recorded Concern Status LastModified by Organization Details LastModified Time None Recorded Advance Directives Directive None Recorded Payers Encounter Date Sequence Insurance Name Policy Number Policy Childers Covered Member ID Childers Member ID Guarantor Name 11/22/2023 1 [facility] HP Mali Bettencourt [id number] [employer]court 03/03/2024 1 [employer] [place] E Sg [id number] Mali Bettencourt 03/25/2024 1 [facility] HP Maliosmar Bettencourt [id number] Mali Bettencourt Notes Date Note Type Note Provider Name and Address Organization Details Recorded Time 11/22/2023 text/html 43 year old diony chapa with a history of a right canal wall down mastoidectomy. She is here today with her partner for evaluation of right sided otorrhea. Symptoms started about two weeks ago. She was seen in the ER at [facility] and given ofloxacin drops. She did not feel these were helping, so she was seen by her PCP and given doxycycline. The ear is still draining and can be bloody at time. Shanna almaraz [place] - [facility] 11/22/2023 16:28:23 03/03/2024 text/html 43 year old femvel chapa smoker with a history of a right canal wall down mastoidectomy. Last seen by Shanna Acosta PA-C back in November with otorrhea, treated with topical TobraDex drops. Patient comes in today following visit to the [facility] emergency room on 02/23/2024. Patient given a course of oral Levaquin, no topical drops provided. She did not take the Levaquin because it made her sick.Original surgery was in 1996 at [facility]. Second surgery was done in 2004 in [place].Smokes half pack a day.. She is a recovering substance user. DAVID LEON MD [address] [place] [address], [phone], [place] - [facility] 03/03/2024 13:32:07 03/25/2024 text/html 43 year old femvel le smoker with a history of a right canal wall down mastoidectomy. Original surgery was in 1996 at [facility]. Second surgery was done in 2004 in [place]. She has not had prior meatoplasty, making it somewhat difficult to debride the cavity. She has a relatively shallow cavity. Along the inferior margin of the cavity there was a granulation polyp which was debrided using cup forceps and the base cauterized with silver nitrate. Bacitracin applied over top. Patient follows up for reevaluation of the site. Patient has a hearing aid for the right ear but does not use it because it bothers her from an auditory standpoint DAVID LEON MD [address] [place] [address], [place], [address], [place] - [facility] 03/25/2024 16:10:24 OBGyn Episode No OBEpisode recorded.
== END 2024-05-28 11:46 | disposition home or self-care (01) ==
LOC: HO.ED 11:44
PROVIDERS: Emergency Provider Emergency Medicine; PCP Orthopaedic Surgery
DX: K04.7 Periapical abscess without sinus (principal)
CPT/HCPCS: 99282; 99283

== ENCOUNTER 2024-06-11 00:50 | Emergency (ER) | payer MEDICAID, SELFPAY ==
[2024-06-11 00:59] VITALS: BP 125/63; PULSE 98; RESP 16; TEMP 37.1; O2SAT 100; BMI 32.8
--- OUTSIDE RECORDS SUMMARY | 2024-06-11 01:40 | XMS_ITS | Clinical Summary ---
Author Organization [facility] Address [address] [place] [address] Care Team Providers Care Emt/Dispatcher Name Role Phone Unavailable Primary Care Provider [...] Smear 04/10/2003 Breast Cancer Screening (Mammogram) 2022 [id number] (2023- season) 2023 021, 05/17/2020 Imm-Influenza (#1) 2023 11/19/2018 Alcohol and Drug Screen 02/06/2024 Depression Annual Screen 02/06/2024 Imm-DTaP/Tdap/Td (2 - Td or Tdap) 11/19/2028 019 Cervical Ablation/Cold-Knife Conization Discontinued Cervical Cryotherapy Discontinued Colposcopy Discontinued Endometrial Biopsy Discontinued Excision/Leep Discontinued HPV Genotyping Discontinued Vaginal Pap Discontinued Vulvoscopy Discontinued Insurance [place] MEDICAID
--- NOTE | 2024-06-11 02:01 | ED.GENADULT ---
HPI - General Adult General Chief complaint: Dental/Oral Stated complaint: dental pain Time Seen by Provider: 06/11/24 01:44 Source: patient, RN notes reviewed and old records reviewed Mode of arrival: ambulatory Limitations: no limitations History of Present Illness ED Provider: Giovanni TAYLOR narrative: 44-year-old female presents for evaluation of right facial swelling. Patient was seen here 2 weeks ago and diagnosed with a dental abscess. She was initially started on clindamycin but felt as though she could not tolerate the nausea She returned 2 days later and was switched to doxycycline. She reports completing a week's worth of the antibiotic but her symptoms have not improved. The patient reports that she spent an hour prior to arrival ?squeezing out drainage that was mostly bloody. ? She does not have an appointment to see her dentist until July She reports that she has poor dentition with old fractures but no recent fractures Related Data Previous Rx's ?Medication ?Instructions ?Recorded clindamycin HCl 300 mg capsule 300 mg PO Q6H 7 days #28 caps 05/26/24 (Cleocin HCl) oxycodone 5 mg tablet 5 mg PO Q6H PRN pain #15 tabs 05/26/24 doxycycline hyclate 100 mg tablet 100 mg PO BID 7 days #14 tabs 05/28/24 clindamycin HCl 300 mg capsule 300 mg PO Q6H #28 caps 06/11/24 ondansetron 4 mg disintegrating 4 mg PO Q8H PRN nausea and 06/11/24 tablet vomiting #20 tabs Allergies Allergy/AdvReac Type Severity Reaction Status Date / Time cephalexin [From Keflex] Allergy Unknown Verified 06/11/24 01:03 levofloxacin [From Levaquin] Allergy Joint Pain Verified 06/11/24 01:03 lorazepam [From Ativan] Allergy Hallucinati Verified 06/11/24 01:03 ons Penicillins [PCN] Allergy Anaphylaxis Verified 06/11/24 01:03 Review of Systems Constitutional: Constitutional: Denies body ache(s), Denies chills and Denies fever(s) ENT: Denies vertigo, Denies dizziness and Reports mouth pain Comments: Facial swelling Cardiovascular: Cardiovascular: Denies chest pain, Denies syncope and Denies dyspnea Respiratory: Respiratory: Denies cough and Denies dyspnea Gastrointestinal: Gastrointestinal: Denies abdominal pain, Denies nausea and Denies vomiting Musculoskeletal: Musculoskeletal: Denies back pain Neurologic: Denies vertigo, Denies dizziness and Denies syncope Psychiatric: Psychiatric: Denies anxiety PMFSH Social History Social History Unable to assess alcohol history related to: Unknown Advance Directives: No Advance Directives Information Provided: Yes Do you have a plan to hurt others: No Plan Physical Exam ED Vital Signs: Vital Signs - 24 hr 06/11/24 00:59 06/11/24 02:39 Temperature 98.8 F 98.8 F Pulse Rate 98 98 Respiratory Rate 16 16 Blood Pressure 125/63 125/63 Pulse Oximetry 100 100 Oxygen Delivery Method Room Air Room Air BMI result Body Mass Index 32.8 Const General: healthy appearing, comfortable, no acute distress, alert and awake Nutritional Appearance: well nourished Orientation/consciousness: patient oriented x3 HENMT Other: Patient has multiple dental caries and a remote fracture of the right lower molar. She has right-sided the patient has edema without overlying skin erythema. There was no obvious gingival abscess. There was no edema extending down into the neck. No Ludwin's angina Head: Yes normocephalic and Yes atraumatic Throat: Yes posterior oropharynx normal Eyes Eyelids: Yes eyelids normal Conjunctivae: conjunctivae normal Sclerae: sclerae normal Corneas: corneas normal Pupils: Equal, round and reactive pupils present EOM: EOMs intact bilaterally Neck Neck: Yes full ROM Resp Effort & Inspection: normal respiratory effort, able to speak in complete sentences and not labored Skin General skin exam: elasticity normal Neuro General: patient oriented x3 Cranial nerves: Yes Equal, round and reactive pupils present and Yes Bilaterally intact EOM present Cognition (Neuro): normal cognition Extrem Other: Moving all extremities well without any obvious deformities Medications Administered Discontinued Medications Generic Name Dose Route Start Last Admin Trade Name Freq PRN Reason Stop Dose Admin Clindamycin HCl 300 mg 06/11/24 02:02 06/11/24 02:38 Clindamycin Hcl 300 Mg Capsule PO 06/11/24 02:03 Not Given ONCE ONE Ondansetron HCl 4 mg 06/11/24 02:02 06/11/24 02:34 Ondansetron Odt 4 Mg Tab.Rapdis TRANSLINGU 06/11/24 02:03 4 mg ONCE ONE Administration Medical Decision Making Medical Decision Making MDM Narrative: 44-year-old female presents for evaluation of continued facial swelling. This does appear to have a dental origin but there is no definitive abscess. I discussed getting a CT scan to evaluate for drainable collection them the patient declines. The patient reports an anaphylaxis allergy to penicillin/amoxicillin. She had been trialed on clindamycin but reportedly could not tolerate it due to nausea. She finished doxycycline in his requesting more doxycycline. I discussed with the patient given that she has completed a course of doxycycline and there was no improvement I would recommend switching her antibiotic. The patient does not have an allergy to clindamycin but could not tolerate with the nausea. The patient is willing to retry clindamycin while being prescribed Zofran and trying to take the antibiotic with food. This will more appropriately target oral breanna Differential Diagnosis Differential Diagnoses: The differential diagnosis associated with the presentation includes Dental caries Dental trauma Dental abscess Facial edema Discharge Plan Discharge Clinical Impression: Dental caries, Fracture of tooth, Facial swelling Patient Disposition: Home, Self-Care Instructions: Toothache (ED) Additional Instructions: Your symptoms are consistent with a dental infection. I recommend having something to eat and then taking nausea medicine 30 minutes before you take the antibiotic which is 4 times a day This should help reduce the amount of nausea you experience Apply warm compresses to the swollen area every 4 hours for 10-15 minutes Follow-up with your dentist as soon as possible Return for new or worsening symptoms Prescriptions: New clindamycin HCl 300 mg capsule 300 mg PO Q6H Qty: 28 0RF ondansetron 4 mg tablet,disintegrating 4 mg PO Q8H PRN (Reason: nausea and vomiting) Qty: 20 0RF No Action doxycycline hyclate 100 mg tablet 100 mg PO BID 7 Days Qty: 14 0RF oxycodone 5 mg tablet 5 mg PO Q6H PRN (Reason: pain) Qty: 15 0RF Rx Instructions: partial filing upon pt request; Partial Fill upon patient request. clindamycin HCl [Cleocin HCl] 300 mg capsule 300 mg PO Q6H 7 Days Qty: 28 0RF Interventions: ED Discharge Assessment Last Done: 06/11/24 02:39 Discharge Date/Time: 06/11/24 02:42 Print Language: Bermudian
--- NOTE | 2024-06-11 02:01 | MHC.EDTECH ---
labs ordered by process engineering intern, per provider labs are not needed and will be cancelled.
[2024-06-11] MEDS: Ondansetron ODT 4 MG TAB.RAPDIS TRANSLINGU (02:34)
[2024-06-11 02:39] VITALS: BP 125/63; PULSE 98; RESP 16; TEMP 37.1; O2SAT 100
--- NOTE | 2024-06-11 02:40 | PC.NURSE ---
ABX not stocked in [facility], [facility] made aware. Pt did not want to wait for ABX at this time. Pt informed about importance of picking up ABX RX.
== END 2024-06-11 02:42 | disposition home or self-care (01) ==
PROVIDERS: Emergency Provider Emergency Medicine; PCP Orthopaedic Surgery
DX: K02.9 Dental caries, unspecified (principal); K03.81 Cracked tooth; R22.1 Localized swelling, mass and lump, neck
CPT/HCPCS: 99282; 99283

== ENCOUNTER 2024-11-14 11:31 | Emergency (ER) | payer MEDICAID, SELFPAY ==
--- NOTE | ~2024-11-14 | CT_ITS ---
EXAMINATION: CT brain and CT cervical spine without contrast. CLINICAL INDICATION: Memory loss. Bilateral hand numbness. COMPARISON: None. TECHNIQUE: 5 mm thin axial and reformatted 2 mm thin sagittal and coronal images of brain were obtained. Subsequently axial 3 mm thin and reformatted 2 mm thin sagittal and coronal images of cervical spine were obtained. DLP 1027. One or more of the following dose reduction techniques were used: Automated exposure control, adjustment of the mA and/or kV according to patient size, and/or iterative reconstruction. Unless otherwise specified, incidental findings do not require dedicated imaging follow-up. FINDINGS: Brain: There is no acute intra-axial, extra-axial bleed, masses or midline shift. The there is no acute infarction evolution. There is no edema. The arita to white matter differentiation is maintained normal. The lateral ventricles are symmetrical in size and configuration without enlargement. Bone windows reveal no calvarial abnormality. There is no scalp soft tissue abnormality. Bilateral paranasal sinuses and mastoid air cells are well-aerated. There is a right mastoidectomy findings from previous intervention. Cervical spine: There is mild straightening of cervical lordosis. The vertebral heights and alignment are normal. There is mild loss of C4-5 disc height with mild posterior spondylosis C4-5 disc level. Rest of the disc heights are normal. The craniovertebral junction and the C1-C2 alignment is normal. No visible acute fracture, dislocation or subluxation seen. No aggressive lytic or sclerotic process seen. Visualized bilateral parotid and submandibular glands are unremarkable. There there are bilateral prominent lymph nodes throughout the segments of to 3 and 4. The tracheal airway is widely patent. The lung apices are clear. CT/CT cervical spine wo IV con Impression: No acute intracranial process seen. Evidence of previous right mastoidectomy. Mild posterior spondylosis cervical spine. No visible acute fracture, dislocation or subluxation seen. Electronically signed by: Florentino Franco MD 11/14/2024 01:35 PM EDT
[2024-11-14 11:39] VITALS: BP 113/75; PULSE 103; RESP 16; TEMP 37; O2SAT 98; BMI 27.0
--- NOTE | 2024-11-14 11:40 | ED_ITS ---
HPI - General Adult General Chief complaint: General Medical Stated complaint: multiple complaints Time Seen by Provider: 11/14/24 13:04 Source: patient Mode of arrival: ambulatory Limitations: no limitations History of Present Illness ED Provider: Dr. Israel Stephens HPI narrative: 44-year-old female who presents emergency department for evaluation of bilateral hand numbness and weakness x3 weeks and episodic loss of memory and contusion. Patient states she has a history of recurrent current brain tumor which was resected 1st resected in 1996 requiring repeat surgery 6 months later and in 2004. She states for the last 3 weeks she has had numbness in both hands involving the thumbs, index finger and middle fingers. She states that her hands have become weak and she has dropped objects. She states the numbness does extend from her hands to her elbows. She states that she has also been experiencing weakness in her lower extremities but not as severe as the weakness in her upper extremities. Patient states that she has episodes of memory loss. She describes an episode where she was staring at her microwave could not name the objects or comprehend what it was used for. She states she has also had episodes where she has been confused. She was concerned that these symptoms were getting worse therefore she came to the emergency department for evaluation. She denied fever, chills, chest pain, shortness of breath, nausea, vomiting, diarrhea, weight loss or weight gain. Patient states that she does use intranasal cocaine intermittently and last used 3 days prior to coming to the emergency department. Patient did have accidental maria cigarette maria to her right index finger and middle finger. Related Data Previous Rx's ?Medication ?Instructions ?Recorded clindamycin HCl 300 mg capsule 300 mg PO Q6H 7 days #2 8 caps 05/26/24 (Cleocin HCl) oxycodone 5 mg tablet 5 mg PO Q6H PRN pain #15 tab s 05/26/24 doxycycline hyclate 100 mg tablet 100 mg PO BID 7 days #14 tabs 05/28/24 clindamycin HCl 300 mg capsule 300 mg PO Q6H #28 caps 06/11/24 ondansetron 4 mg disintegrating 4 mg PO Q8H PRN nausea and 06/11/24 tablet vomiting #20 tabs Allergies Allergy/AdvReac Type Severity Reaction Status Date / Time azithromycin Allergy Angioedema Verified 11/14/24 11:40 cephalexin (From Keflex) Allergy Unknown Verified 11/14/24 11:40 levofloxacin (From Levaquin) Allergy Joint Pain Verified 11/14/24 11:40 lorazepam (From Ativan) Allergy Hallucinati Verified 11/14/24 11:40 ons Penicillins (PCN) Allergy Anaphylaxis Verified 11/14/24 11:40 Review of Systems 2 Review of Systems: Yes all other systems are reviewed and are negative PMFSH Social History Social History Advance Directives: No Advance Directives Information Provided: Yes Physical Exam ED Vital Signs: Vital Signs - 24 hr 11/14/24 11:39 11/14/24 14:42 Temperature 98.6 F Pulse Rate 103 H 96 Respiratory Rate 16 18 Blood Pressure 113/75 135/60 Pulse Oximetry 98 100 Oxygen Delivery Method Room Air Room Air BMI result Body Mass Index 27.0 Vital signs revealed an elevated heart rate of 103 otherwise unremarkable Exam: General: Awake, alert in no distress Head: Normocephalic, atraumatic EENT: PERRL, sclera and conjunctiva are normal, mouth with no erythema or exudates Neck: Supple, no adenopathy Lung: breath sounds symmetric, no wheezing, no rales and no rhonchi Chest: symmetric movement, nontender Heart: regular rate and rhythm, normal S1, S2 no murmurs or rubs Abdomen: soft, non-tender, nondistended, normal bowel sounds Back: no vertebral tenderness, no CVAT Extremities: no deformities, moves all extremities symmetrically, no edema Neuro: General: ?Awake, alert, oriented, normal speech Cranial nerves: ?Cranial nerves ?intact Strength: ?Normal strength in both upper and lower extremities Cerebellar: ?Good [id number]-msfu-to-finger, good rapid finger movement, normal heel to larry, normal gait Psych: Pleasant, cooperative Course Course Course Narrative: This is an RME: Additional HPI, ROS, PE not included below will be deferred to primary provider. RME assessment and note performed by: Daniela Bowser PA-C This is a [id number]-female who presents to the ER with a complaint of severe memory loss and decreased function of her hands. Reports that this started 1 month ago. She reports that she hears sloshing in her head x 3 weeks. Hx of cholesteatoma. Reports that she stood at her microwave for 15 minutes not realizing how to start the microwave. Neurologically intact Plan: Labs, CT head/neck Medical Decision Making Medical Decision Making [facility] Narrative: 44-year-old female who presents emergency department for evaluation of bilateral hand numbness and weakness x3 weeks and episodic loss of memory and contusion. Patient states she has a history of recurrent current brain tumor which was resected 1st resected in 1996 requiring repeat surgery 6 months later and in 2004. She states for the last 3 weeks she has had numbness in both hands involving the thumbs, index finger and middle fingers. She states that her hands have become weak and she has dropped objects. She states the numbness does extend from her hands to her elbows. She states that she has also been experiencing weakness in her lower extremities but not as severe as the weakness in her upper extremities. Patient states that she has episodes of memory loss. She describes an episode where she was staring at her microwave could not name the objects or comprehend what it was used for. She states she has also had episodes where she has been confused. She was concerned that these symptoms were getting worse therefore she came to the emergency department for evaluation. She denied fever, chills, chest pain, shortness of breath, nausea, vomiting, diarrhea, weight loss or weight gain. Patient states that she does use intranasal cocaine intermittently and last used 3 days prior to coming to the emergency department. Vital signs revealed an elevated heart rate otherwise unremarkable. Neurologic exam was nonfocal. Differential diagnosis: ?Includes but is not limited to intracranial bleed, stroke, mass effect, multiple sclerosis, bilateral carpal tunnel syndrome, neuropathy, myopathy, anemia, electrolyte abnormalities Course: 15:47 My independent interpretation patient's laboratory evaluation is as follows: WBC elevated 12,800. Chloride elevated 110. LFTs were normal. CK normal 60. CRP normal 0.8. ESR normal 17. CT scan of the brain and cervical spine did not reveal any acute abnormalities to explain the patient's symptoms. The patient's bilateral hand pain and weakness could be consistent with carpal tunnel syndrome. At this time I do not have a clear etiology for the patient's intermittent memory loss and intermittent confusion. I did discuss this with the patient. The patient [place] [facility] [place] [facility] [place] workup. I told her that she can also call her primary care provider to get a referral to a neurologist as well. Patient was given printed and verbal instructions discharged home Differential Diagnosis Differential Diagnoses: The differential diagnosis associated with the presentation includes (See above) Admission/Observation Consideration of admission/observation: Escalation of care including admission/observation considered (Yes) Lab Data MDM Lab Attestation statement: I reviewed the patient's lab results. 11/14/24 12:18 11/14/24 12:18 Labs: Lab Results 11/14/24 Range/Units 12:18 WBC 12.8 H (4.8-10.8) X10*3/uL RBC 4.38 (4.20-5.50) X10*6/uL Hgb 13.4 (12.0-16.0) g/dl Hct 40.2 (37.0-47.0) % MCV 91.8 (80.0-98.0) fL MCH 30.6 (27.0-33.0) pg MCHC 33.3 (31.0-35.0) g/dl RDW 13.0 (11.0-16.0) % Plt Count 385 D (160-400) X10*3/uL MPV 9.5 (9.4-12.3) fL Immature Gran % (Auto) 0.4 (0.0-0.4) % Neut % (Auto) 62.7 (45-73) % Lymph % (Auto) 26.8 (20-40) % [place] % (Auto) 5.3 (2-11) % Eos % (Auto) 4.4 H (0-4) % Baso % (Auto) 0.4 (0-2) % Lymph # (Auto) 3.4 (1.2-4.9) X10*3/uL [place] # (Auto) 0.7 (0.1-1.2) X10*3/uL Eos # (Auto) 0.6 H (0.0-0.4) X10*3/uL Baso # (Auto) 0.1 (0.0-0.2) X10*3/uL Abs Immat Gran (auto) 0.05 H (0.00-0.03) X10*3/uL Absolute Neuts (auto) 8.0 (2.0-8.3) x10*3/uL Absolute Nucleated RBC 0.000 (0.0-0.012) X10*3/uL Nucleated RBC % (auto) 0.0 (0.0-0.2) /100WBC ESR 17 (0-20) MM/HR Sodium 140 (135-145) mmol/L Potassium 4.3 (3.3-5.1) mmol/L Chloride 110 H (96-108) mmol/L Carbon Dioxide 24 (22-29) mmol/L Anion Gap 10 L (12-20) BUN 9 (9-16) mg/dL Creatinine 0.62 (0.5-1.4) mg/dL Estim Creat Clear Calc 123.0 Estimated GFR > 60 Random Glucose 104 (60-115) mg/dL Calcium 9.3 (8.4-10.2) mg/dL Total Bilirubin 0.1 (0.0-1.0) mg/dL Direct Bilirubin < 0.2 (0.0-0.5) mg/dL AST 13 (5-31) U/L ALT 11 (0-31) U/L Alkaline Phosphatase 72 (39-117) U/L Total Creatine Kinase 60 (26-140) U/L C-Reactive Protein 0.80 H (< or = 0.50) mg/dL Total Protein 6.8 (6.5-8.0) g/dL Albumin 4.1 (3.5-5.0) g/dL Independent Interpretation I performed an independent interpretation of an: CT Scan Interpretation: My independent interpretation of the patient's CT scan is as follows: No acute skull fracture, no intracranial bleed, no mass effect Radiology Impression Discussion of test interpretation with radiology: I have reviewed the radiologist's reading. Radiologist Impression: CT head/brain and CT cervical spine wo IV con Impression: No acute intracranial process seen. Evidence of previous right mastoidectomy. Mild posterior spondylosis cervical spine. No visible acute fracture, dislocation or subluxation seen. Electronically signed by: Florentino Franco MD 11/14/2024 01:35 PM Discharge Plan Discharge Clinical Impression: Bilateral hand numbness, Weakness of both hands, Episodic memory loss Patient Disposition: Home, Self-Care Additional Instructions: The CT scan of your head and neck did not reveal any abnormalities to explain your symptoms. There was no large tumor or swelling of the brain noted on your CAT scan which is reassuring. Your blood work was normal. Your inflammatory markers (ESR and CRP) were not elevated. Your muscle breakdown marker (CK) was normal. Given the fact that your numbness in your and involves the thumbs, index fingers and middle fingers, I suspect that you may have carpal in both hands I do not have a clear cause for your memory loss and confusion. I want you to follow up with our Neurology group for re-evaluation. You can also discuss getting a neurology referral from your PCP. Continue taking medications as prescribed by your providers. Follow-up with your doctor in 2 days. Please return to the emergency department if your symptoms get worse or if you develop any symptoms that are concerning to you. Prescriptions: No Action doxycycline hyclate 100 mg tablet 100 mg PO BID 7 Days Qty: 14 0RF clindamycin HCl 300 mg capsule 300 mg PO Q6H Qty: 28 0RF ondansetron 4 mg tablet,disintegrating 4 mg PO Q8H PRN (Reason: nausea and vomiting) Qty: 20 0RF oxycodone 5 mg tablet 5 mg PO Q6H PRN (Reason: pain) Qty: 15 0RF Rx Instructions: partial filing upon pt request; Partial Fill upon patient request. clindamycin HCl [Cleocin HCl] 300 mg capsule 300 mg PO Q6H 7 Days Qty: 28 0RF Referrals: Ray White MD [Physician, Neurology] Referral Note: Bilateral hand numbness (thumb, index, middle fingers) with weakness bilateral hand weakness. Also complaining of memory loss, confusion x3 weeks. CT brain and cervical spine no significant abnormalities. ESR, CRP and CK normal. Clinical Impression: Weakness of both hands; Bilateral hand numbness; Episodic memory loss Print Language: Mongolian
[2024-11-14 12:22] LABS: MANUAL DIFF FLAG NO
[2024-11-14 12:27] LABS: Hematocrit 40.2 % (37.0-47.0); Hemoglobin 13.4 g/dl (12.0-16.0); Imm Gran Abs Auto 0.05 X10*3/uL (0.00-0.03); Imm Gran Pct Auto 0.4 % (0.0-0.4); Lymphocytes Absolute Auto 3.4 X10*3/uL (1.2-4.9); Mean Corpuscular HGB Conc 33.3 g/dl (31.0-35.0); Mean Corpuscular Hemoglobin 30.6 pg (27.0-33.0); Mean Corpuscular Volume 91.8 fL (80.0-98.0); NRBC Abs Auto 0.000 X10*3/uL (0.0-0.012); NRBC Pct Auto 0.0 /100WBC (0.0-0.2); Platelet Count 385 X10*3/uL (160-400); Red Blood Count 4.38 X10*6/uL (4.20-5.50); White Blood Count 12.8 X10*3/uL (4.8-10.8)
[2024-11-14 12:39] LABS: Alanine Aminotransferase 11 U/L (0-31); Albumin Level 4.1 g/dL (3.5-5.0); Alkaline Phosphatase 72 U/L (39-117); Anion Gap 10 (12-20); Aspartate Amino Transferase 13 U/L (5-31); Blood Urea Nitrogen 9 mg/dL (9-16); Calcium 9.3 mg/dL (8.4-10.2); Carbon Dioxide 24 mmol/L (22-29); Chloride 110 mmol/L (96-108); Creatinine Clr Calc Pharmacy 123.0; Estimated Glomerular Filt Rate > 60; Potassium 4.3 mmol/L (3.3-5.1); Sodium 140 mmol/L (135-145); Total Protein 6.8 g/dL (6.5-8.0)
[2024-11-14 14:42] VITALS: BP 135/60; PULSE 96; RESP 18; O2SAT 100
[2024-11-14 15:37] VITALS: BP 135/60; PULSE 96; RESP 18; TEMP 36.4; O2SAT 100
== END 2024-11-14 15:50 | disposition home or self-care (01) ==
PROVIDERS: Physician Assistant Medical; Emergency Provider Emergency Medicine Emergency Medical Services; PCP Pediatrics
DX: R20.0 Anesthesia of skin (principal); R53.1 Weakness; R41.3 Other amnesia; Z86.69 Personal history of other diseases of the nervous system and sense organs; Z79.899 Other long term (current) drug therapy
CPT/HCPCS: 36415; 70450; 72125; 80048; 80076; 82550; 85025; 85652; 86140; 99283; 99284

== ENCOUNTER → 2024-11-14 11:47 | Outpatient (BNV) | payer MEDICAID, SELFPAY | PROVIDERS: Emergency Provider Emergency Medicine Emergency Medical Services; PCP Pediatrics; Visit Provider Radiology Diagnostic Radiology | DX: R41.3 Other amnesia (principal); M47.812 Spondylosis without myelopathy or radiculopathy, cervical region | CPT/HCPCS: 70450; 72125 ==